=== PATIENT | male | born 2000 | race Native Hawaiian/Other Pacific Islander ===

== ENCOUNTER 2018-06-16 18:01 | Emergency (ER) | payer BC ==
[~2018-06-16] VITALS: Ht 193 cm; Wt 87.1 kg
[2018-06-16 20:15] VITALS: BP 128/76; TEMP 98.7
== END 2018-06-16 20:15 | disposition home or self-care (01) ==
LOC: ED 18:01
DX: S00.83XA Contusion of other part of head, initial encounter (principal); Y00.XXXA Assault by blunt object, initial encounter; Y04.0XXA Assault by unarmed brawl or fight, initial encounter; Y92.512 Supermarket, store or market as the place of occurrence of the external cause
CPT/HCPCS: 99283